=== PATIENT | female | born 1985 | race Caucasian/White ===

== ENCOUNTER 2017-08-20 06:31 | Inpatient (IN) | payer BC ==
[~2017-08-20] VITALS: Ht 165.1 cm; Wt 79.5 kg
[~2017-08-20 06:31] MED LIST: CETI10CA PO; PREN1TAB60 PO
[2017-08-20] MEDS ORDERED: OXYTOCIN 30U/ 0.9% NaCL 500ML 500 ML IV ONE (06:49)
[2017-08-20] MEDS ORDERED: D5%-LACTATED RINGERS 1,000 ML IV SCH (06:49)
[2017-08-20] MEDS ORDERED: CALCIUM CARBONATE 500 MG TAB.CHEW PO PRN (07:00)
[2017-08-20] MEDS ORDERED: ONDANSETRON 2MG/ML, 2ML IVPush PRN (07:00)
[2017-08-20] MEDS ORDERED: FENTANYL PF 100 MCG/2ML IVPush PRN (07:00)
[2017-08-20] MEDS ORDERED: FENTANYL PF 100 MCG/2ML IV PRN (07:00)
[2017-08-20 07:16] VITALS: BP 131/80
[2017-08-20] MEDS ORDERED: NEWBORN KIT ONE (07:16)
[2017-08-20 07:27] LABS: BASOPHILS # (AUTO) 0.04 x10^3/uL (0-0.1); BASOPHILS % (AUTO) 0 % (0-1); EOSINOPHILS # (AUTO) 0.02 x10^3/uL (0-0.4); EOSINOPHILS % (AUTO) 0 % (1-7); LYMPHOCYTES # (AUTO) 1.65 x10^3/uL (1-3.4); LYMPHOCYTES % (AUTO) 12 % (22-44); MD NO; MEAN CORPUSCULAR HEMOGLOBIN 28.2 pg (27.0-34.8); MEAN CORPUSCULAR HGB CONC 32.9 g/dL (32.4-35.8); MEAN CORPUSCULAR VOLUME 85.7 fL (80-100); MEAN PLATELET VOLUME 8.7 fL (7.4-10.4); MONOCYTES # (AUTO) 0.95 x10^3/uL (0.2-0.8); MONOCYTES % (AUTO) 7 % (2-9); NEUTROPHILS # (AUTO) 11.21 x10^3/uL (1.8-6.8); NEUTROPHILS % (AUTO) 81 % (42-75); PLATELET COUNT 254 x10^3/uL (130-400); RED BLOOD COUNT 3.69 x10^6/uL (3.82-5.3); RED CELL DISTRIBUTION WIDTH 14.4 % (9.6-15.2)
[2017-08-20] MEDS ORDERED: OXYTOCIN 30U/ 0.9% NaCL 500ML 500 ML ONE (07:27)
[2017-08-20] MEDS ORDERED: PLEASE ENTER HEIGHT AND WEIGHT MC SCH (07:30)
[2017-08-20] MEDS: LACTATED RINGERS 1,000 ML IV SCH ×2 (07:31→08:21)
[2017-08-20] MEDS ORDERED: BUPIVACAINE 0.25% ONE ×2 (07:38→07:40)
[2017-08-20] MEDS ORDERED: FENTANYL PF 100 MCG/2ML ONE (07:38)
[2017-08-20] MEDS ORDERED: FENTANYL/BUPIV./NS/PF 250 ML EPIDCONT ONE ×2 (07:38→07:40)
[2017-08-20] MEDS: OXYTOCIN 30U/ 0.9% NaCL 500ML 500 ML IV SCH ×3 (11:22→22:20)
[2017-08-20] MEDS ORDERED: ACETAMINOPHEN 325 MG TABLET PO PRN (11:30)
[2017-08-20] MEDS ORDERED: METHYLERGONOVINE 0.2 MG/ML IM PRN (11:30)
[2017-08-20] MEDS ORDERED: ONDANSETRON 2MG/ML, 2ML IV PRN (11:30)
[2017-08-20] MEDS ORDERED: MISOPROSTOL 200 MCG TABLET PR PRN (11:30)
[2017-08-20] MEDS ORDERED: OXYcodone/APAP 5/325MG TABLET PO PRN (11:30)
[2017-08-20] MEDS ORDERED: LACTATED RINGERS 1,000 ML IV SCH (12:07)
[2017-08-20] MEDS ORDERED: FENTANYL/BUPIV./NS/PF 250 ML EPIDCONT SCH (12:07)
[2017-08-20] MEDS ORDERED: LACTATED RINGERS 1,000 ML IVBOLUS PRN (12:30)
[2017-08-20 13:30] VITALS: BP 131/89
[2017-08-20] MEDS: IBUPROFEN 600 MG TABLET PO PRN ×2 (13:34→19:43)
[2017-08-20] MEDS: OXYcodone/APAP 5/325MG TABLET PO PRN ×2 (14:26→19:43)
[2017-08-20 16:31] VITALS: BP 135/88
[2017-08-20 19:45] VITALS: BP 123/85
[2017-08-20] MEDS: DOCUSATE 100 MG CAPSULE PO PRN (19:54)
[2017-08-20 19:58] LABS: MEAN CORPUSCULAR HEMOGLOBIN 28.6 pg (27.0-34.8); MEAN CORPUSCULAR VOLUME 86.6 fL (80-100); MEAN PLATELET VOLUME 8.6 fL (7.4-10.4); PLATELET COUNT 228 x10^3/uL (130-400); RED CELL DISTRIBUTION WIDTH 14.8 % (9.6-15.2)
[2017-08-20 20:19] LABS: BASOPHILS # (AUTO) 0.07 x10^3/uL (0-0.1); BASOPHILS % (AUTO) 0 % (0-1); EOSINOPHILS # (AUTO) 0.02 x10^3/uL (0-0.4); EOSINOPHILS % (AUTO) 0 % (1-7); LYMPHOCYTES # (AUTO) 1.79 x10^3/uL (1-3.4); LYMPHOCYTES % (AUTO) 9 % (22-44); MD SCAN; MONOCYTES # (AUTO) 0.79 x10^3/uL (0.2-0.8); MONOCYTES % (AUTO) 4 % (2-9); NEUTROPHILS # (AUTO) 16.61 x10^3/uL (1.8-6.8); NEUTROPHILS % (AUTO) 86 % (42-75)
[2017-08-21 00:20] VITALS: BP 115/79
[2017-08-21] MEDS: OXYcodone/APAP 5/325MG TABLET PO PRN ×4 (00:59→19:54)
[2017-08-21 07:55] VITALS: BP 126/83
[2017-08-21] MEDS: PRENATAL VIT/IRON/FA 1 EACH TABLET PO SCH (08:17)
[2017-08-21] MEDS: DOCUSATE 100 MG CAPSULE PO PRN ×2 (08:17→19:55)
[2017-08-21] MEDS: IBUPROFEN 600 MG TABLET PO PRN ×3 (08:17→19:55)
[2017-08-21 19:21] VITALS: BP 116/78
[2017-08-22] MEDS: IBUPROFEN 600 MG TABLET PO PRN ×3 (01:51→13:55)
[2017-08-22] MEDS: OXYcodone/APAP 5/325MG TABLET PO PRN ×2 (01:51→08:15)
[2017-08-22 07:05] VITALS: BP 124/86
[2017-08-22] MEDS: PRENATAL VIT/IRON/FA 1 EACH TABLET PO SCH (08:15)
[2017-08-22] MEDS: DOCUSATE 100 MG CAPSULE PO PRN (08:15)
[2017-08-22 11:58] VITALS: BP 132/92
[2017-08-22] MEDS ORDERED: IBUP-1222 PO (15:58)
== END 2017-08-22 18:37 | disposition home or self-care (01) | DRG 775 ==
LOC: LDOP 06:31 → LDIP 06:51 → 2NW 13:32
PROVIDERS: ADMIT Obstetrics & Gynecology; ATTEND Obstetrics & Gynecology
PROC: 10E0XZZ Delivery of Products of Conception, External Approach (ICD-10-PCS; principal; 2017-08-20)
PROC: 0KQM0ZZ Repair Perineum Muscle, Open Approach (ICD-10-PCS; 2017-08-20)
PROC: 10907ZC Drainage of Amniotic Fluid, Therapeutic from Products of Conception, Via Natural or Artificial Opening (ICD-10-PCS; 2017-08-20)
PROC: 3E0R3BZ Introduction of Anesthetic Agent into Spinal Canal, Percutaneous Approach (ICD-10-PCS; 2017-08-20)
PROC: 00HU33Z Insertion of Infusion Device into Spinal Canal, Percutaneous Approach (ICD-10-PCS; 2017-08-20)
DX: O77.0 Labor and delivery complicated by meconium in amniotic fluid (principal); Z37.0 Single live birth; Z3A.38 38 weeks gestation of pregnancy; O70.1 Second degree perineal laceration during delivery
CPT/HCPCS: 36415; 85025; 86850; 86900; 99285; J3490; J2590; J3010; J7120